=== PATIENT | female | born 1995 | race Caucasian/White ===

== ENCOUNTER 2019-01-04 15:11 | Outpatient (REF) | payer OTHER, SELFPAY ==
--- NOTE | 2019-01-04 13:50 | PAPFT_PTH ---
PATIENT: ERYN CAZARES LOC: [facility] U#:[id number] AGE/SX: 23/F ROOM: RE01/04/[address]: Mariam Stein : 1995 BED: DIS: 01/04/2019 SPEC #: [id number] RECD: 01/04/19 18:56 STATUS: SORIN REQ #: [id number] FRENCH: 01/04/19 13:[address]: Mariam Stein DEPT: [facility] Cytology RECD BY: Anca Boyle Tissues: 1 - CX/ENDOCX FOR PAP SMEARS Procedures: PAP THIN PREP/[facility] Screening Comments: [id number]
== END 2019-01-04 15:31 ==
LOC: NCHCN 15:11
PROVIDERS: PCP Nurse Practitioner Family; Visit Provider Nurse Practitioner Family
DX: Z00.00 Encounter for general adult medical examination without abnormal findings (principal); Z12.4 Encounter for screening for malignant neoplasm of cervix
CPT/HCPCS: 88142

== ENCOUNTER 2019-12-04 21:44 | Outpatient (REF) | payer OTHER, SELFPAY | END 2019-12-04 22:04 | LOC: NCHCN 21:44 | PROVIDERS: PCP Nurse Practitioner Family; Visit Provider Nurse Practitioner Family | DX: N39.0 Urinary tract infection, site not specified (principal) | CPT/HCPCS: 87077; 87086; 87186 ==

== ENCOUNTER 2020-10-30 18:38 | Outpatient (REF) | payer SELFPAY ==
[2020-11-02 21:03] LABS: Chlamydia Result Negative (Negative); GC Result Negative (Negative)
== END 2020-10-30 18:39 | disposition home or self-care (01) ==
LOC: NCHCN 18:38
PROVIDERS: PCP Nurse Practitioner Family; Visit Provider Nurse Practitioner Family
DX: N91.0 Primary amenorrhea (principal); Z11.3 Encounter for screening for infections with a predominantly sexual mode of transmission
CPT/HCPCS: 87491; 87591